=== PATIENT | male | born 2000 | race Caucasian/White ===

== ENCOUNTER 2024-10-21 14:55 | Emergency (ER) | payer MEDICAID ==
[~2024-10-21] VITALS: Ht 185.4 cm; Wt 86.2 kg
[2024-10-21] MEDS ORDERED: LIDOCAINE VISCOUS 2% UD 15 ML UDC ONE (15:28)
[2024-10-21] MEDS ORDERED: MAG HYDROX/AL HYDROX/SIMETH 30 ML UDC ONE (15:28)
[2024-10-21] MEDS ORDERED: FAMOTIDINE/PF INJ 20 MG/2 ML VIAL IV ONE (15:29)
[2024-10-21 15:31] LABS: BASOPHILS % (AUTO) 0.2 % (0.0-2.0); EOSINOPHILS # (AUTO) 0.2 K/uL (0.0-0.7); EOSINOPHILS % (AUTO) 1.9 % (0.0-6.0); HEMATOCRIT 45 % (39-51); HEMOGLOBIN 15.8 g/dL (13.5-17.5); LYMPHOCYTES # (AUTO) 2.3 K/uL (0.8-4.8); LYMPHOCYTES % (AUTO) 28.9 % (20.0-44.0); MEAN CORPUSCULAR HEMOGLOBIN 30 PG (26.0-33.0); MEAN CORPUSCULAR HGB CONC 35 g/dl (31.0-36.0); MEAN CORPUSCULAR VOLUME 86 fL (80-96); MONOCYTES # (AUTO) 0.4 K/uL (0.1-1.30); MONOCYTES % (AUTO) 5.3 % (2.0-12.0); NEUTROPHILS % (AUTO) 63.7 % (43.0-81.0); PLATELET COUNT (AUTO) 204 K/uL (150-450); RED CELL DISTRIBUTION WIDTH 13.2 % (11.5-15.0); WHITE BLOOD COUNT (AUTO) 7.9 K/uL (4.3-11.0)
[2024-10-21] MEDS: FAMOTIDINE/PF INJ 20 MG/2 ML VIAL IV ONE (15:36)
[2024-10-21] MEDS: LIDOCAINE VISCOUS 2% UD 15 ML UDC MM ONE (15:37)
[2024-10-21] MEDS: MAG HYDROX/AL HYDROX/SIMETH 30 ML UDC PO ONE (15:37)
[2024-10-21] MEDS: IV NS 0.9% 500 ML BAG IV ONE (15:38)
[2024-10-21 15:45] LABS: BILIRUBIN,DIRECT 0.2 mg/dL (0.0-0.2); BILIRUBIN,TOTAL 0.9 mg/dL (0.2-1.0); CALCIUM, SERUM 9.3 mg/dL (8.5-10.1); CREATININE 0.8 mg/dL (0.6-1.3); POTASSIUM 3.8 mmol/L (3.5-5.1); TOTAL PROTEIN, SERUM 7.1 g/dL (6.4-8.2)
[2024-10-21 16:19] VITALS: BP 106/60; TEMP 98.3; O2SAT 97
== END 2024-10-21 16:19 | disposition home or self-care (01) ==
LOC: ER 15:01
DX: K29.70 Gastritis, unspecified, without bleeding (principal); K21.9 Gastro-esophageal reflux disease without esophagitis; R11.0 Nausea; Z87.891 Personal history of nicotine dependence; Z87.19 Personal history of other diseases of the digestive system
CPT/HCPCS: 99283; 96374; 99406; 85025; 80048; 83690; 80076; 36415; J1308; J7040

== ENCOUNTER 2024-12-07 14:20 | Emergency (ER) | payer MEDICAID ==
[~2024-12-07] VITALS: Ht 182.9 cm; Wt 77.1 kg
[2024-12-07 16:35] VITALS: BP 123/78; TEMP 97.8; O2SAT 99
== END 2024-12-07 16:36 | disposition home or self-care (01) ==
LOC: ER 14:25
DX: M79.672 Pain in left foot (principal); F17.200 Nicotine dependence, unspecified, uncomplicated; X58.XXXA Exposure to other specified factors, initial encounter; Y93.01 Activity, walking, marching and hiking; Y92.89 Other specified places as the place of occurrence of the external cause; Y99.8 Other external cause status
CPT/HCPCS: 73630-TC